=== PATIENT | male | born 2000 | race Native Hawaiian/Other Pacific Islander ===

== ENCOUNTER 2022-10-24 20:54 | Emergency (ER) | payer OTHER ==
[2022-10-24 21:13] VITALS: BP 107/69; PULSE 81; RESP 19; TEMP 98.1; BMI 33.9
[2022-10-24] MEDS ORDERED: IBUPROFEN 600 MG TABLET (FP) PO ONE ×2 (21:49→21:51)
[2022-10-24] MEDS ORDERED: ACETAMINOPHEN 500 MG TABLET (FP) PO ONE (21:49)
[2022-10-24] MEDS ORDERED: ACETAMINOPHEN 500 MG TABLET (FP) ONE (21:51)
== END 2022-10-24 23:18 | disposition home or self-care (01) ==
LOC: JERFT 20:54
DX: S61.102A Unspecified open wound of left thumb with damage to nail, initial encounter (principal); W29.0XXA Contact with powered kitchen appliance, initial encounter
CPT/HCPCS: 99283-25